=== PATIENT | female | born 1975 | race Caucasian/White ===

== ENCOUNTER 2016-09-27 12:01 | Inpatient (IN) ==
[2016-09-27] MEDS ORDERED: *HR* Heparin 10,000 UNIT/10 ML VIAL ONE (12:10)
[2016-09-27] MEDS ORDERED: Heparin 1,000 UNITS/500 mL NS 500 ML ONE (12:10)
[2016-09-27] MEDS ORDERED: 0.9 % Sodium Chloride 1,000 ML ONE ×2 (12:10→12:18)
--- NOTE | 2016-09-27 12:11 | Emergency Department Note ---
Disposition Clinical Impression: STEMI (ST elevation myocardial infarction) Qualifiers: Involved coronary artery: unspecified coronary artery Qualified Code(s): I21.3 - ST elevation (STEMI) myocardial infarction of unspecified site Disposition: Admitted As Inpatient Condition: Serious Referrals: NO,PCP [Primary Care Provider] - Forms: ED Satisfaction Letter Time of Disposition: 12:16 Chest Pain HPI - General Chief Complaint: ED Chest Pain Stated Complaint: CP Time Seen by Provider: 09/27/16 12:05 Source: patient, EMS Mode of arrival: EMS Limitations: no limitations Vital Signs Reviewed: Yes Nursing Notes Reviewed: Yes - History of Present Illness HPI Narrative: Patient presents via EMS with jaw pain and chest discomfort. Symptoms started approximately one hour ago. Symptoms started from rest while she was driving. She notes associated pressure across her chest as well as dyspnea. She denies a previous history of coronary artery disease. She takes no medications. Pt complaint: chest pain Onset (ago): hour(s) Duration: constant Onset: during rest Pain Location: substernal Severity: moderate Quality: tightness Pain Radiation: jaw/teeth Improves with: nothing Worsens with: nothing Associated symptoms: Reports: diaphoresis, dyspnea Treatments prior to arrival chest pain: aspirin, nitroglycerin, oxygen - Related Data On Oral Contraceptives: No All systems ED: reviewed and negative except as stated. Constitutional: Reports: as per HPI Eyes: Reports: as per HPI ENT ED: Reports: as per HPI Cardiovascular: Reports: chest pain Respiratory: Reports: dyspnea Gastrointestinal: Reports: as per HPI Genitourinary: Reports: as per HPI Musculoskeletal: Reports: as per HPI Integumentary: Reports: as per HPI Neurological: Reports: as per HPI Psychiatric: Reports: as per HPI Endocrine: Reports: as per HPI Hematological/Lymphatic: Reports: as per HPI Allergic/Immunologic: Reports: as per HPI Chest Pain PMH - Past Medical History Medical history: Reports: no medical history - Social History Smoking Status: Current some day smoker Alcohol use: Reports: none Drug use: Reports: none Physical Exam Patient anxious appearing - General Limitations: no limitations General appearance: alert - Head Head exam: atraumatic - Eye Eye exam: Present: normal appearance - ENT ENT exam: normal exam - Neck Neck exam: Present: normal inspection, full ROM - Chest Chest inspection: Present: normal inspection, symmetric chest wall rise - Respiratory Respiratory exam: Present: normal lung sounds bilaterally - Cardiovascular Cardiovascular exam: Present: regular rate, normal rhythm, normal heart sounds - Rectal Exam Rectal exam: Present: deferred - Extremities Exam Extremities exam: Present: normal inspection - Neurological Exam Neurological exam: Present: alert, oriented X3 - Psychiatric Psychiatric exam: Present: normal mood, anxious - Skin Skin exam: Present: warm, dry, diaphoresis Course Course Narrative: Patient presents with jaw discomfort and chest pain. Prehospital EKG sent to me shows a STEMI pattern in the inferior leads. STEMI alert activated. Dr. Figueroa, cardiology recommends Brillinta and heparin Chest Pain - EKG Data EKG attestation: Yes I reviewed and interpreted this EKG. EKG results narrative: Sinus rhythm with ST segment elevation in leads 2, 3, aVF, ST segment depression in leads 1, V1, V2. Study consistent with an inferior ST segment elevation with reciprocal changes. Rate 68 DE 186 QRS 91 QT/QTc 443/460
[2016-09-27] MEDS ORDERED: *HR* Ticagrelor 90 MG TABLET PO ONE (12:13)
[2016-09-27] MEDS ORDERED: Heparin 25,000 UNIT/500 ML D5W 25,000 UNIT/500 ML MLS IVC SCH (12:15)
[2016-09-27] MEDS ORDERED: *HR* Heparin 5,000 UNIT/ML VIAL ONE (12:18)
[2016-09-27] MEDS ORDERED: Nitroglycerin 1,000 MCG/10 ML VIAL IV ONE (12:21)
[2016-09-27] MEDS ORDERED: Verapamil 5 MG/2 ML VIAL ONE (12:21)
[2016-09-27 12:25] LABS: Basophils # 0.1 K/mcL (0.0-0.2); Basophils % 0.3 %; Eosinophils # 0.2 K/mcL (0.0-0.6); Eosinophils % 0.8 %; Hematocrit 40.1 % (35.3-44.9); Hemoglobin 12.9 g/dL (11.5-15.4); Immature Granulocytes % 0.7 % (0-4); Lymphocytes # 4.4 K/mcL (0.6-4.6); Lymphocytes % 23.5 %; Mean Corpuscular HGB Conc 32.2 g/dL (31.6-35.5); Mean Corpuscular Hemoglobin 26.7 pg (28.0-33.3); Monocytes # 0.9 K/mcL (0.0-1.3); Monocytes % 4.8 %; Platelet Count 291 K/mcL (140-400); Red Blood Count 4.83 M/mcL (3.82-4.97); Red Cell Distribution Width 14.7 % (11.5-14.5); Segmented Neutrophils % 69.9 %
[2016-09-27 12:30] LABS: INR 1.2; Prothrombin Time 12.6 Seconds (9.4-12.1)
[2016-09-27 12:33] LABS: Activated Partial Thrombo Time 28.2 Seconds (26.0-36.0)
[2016-09-27 12:36] LABS: Alanine Aminotransferase 8 Units/L (0-55); Albumin 3.5 g/dL (3.5-5.0); Albumin/Globulin Ratio 0.9 (1.1-2.2); Alkaline Phosphatase 114 Units/L (38-126); Aspartate Amino Transferase 10 Units/L (5-34); BUN/Creatinine Ratio 5 (6-26); Bilirubin,Total 0.6 mg/dL (0.2-1.2); Calcium 8.8 mg/dL (8.6-10.8); Carbon Dioxide 19 mEq/L (19-29); Chloride 107 mEq/L (98-109); Glucose 158 mg/dL (70-99); Osmolality,Calculated 284 (280-300); Potassium 3.1 mEq/L (3.5-4.5); Sodium 137 mEq/L (136-145); Total Protein 7.5 g/dL (6.0-8.3); eGFR For African Americans > 60 (> 60); eGFR For Non-African Americans > 60 (> 60)
[2016-09-27 12:37] LABS: Blood Urea Nitrogen 4 mg/dL (7-20)
[2016-09-27] MEDS ORDERED: *HR* FentaNYL (PF) 250 MCG/5 ML VIAL ONE (12:40)
[2016-09-27] MEDS ORDERED: *HR* Midazolam HCl 5 MG/5 ML VIAL IVP ONE (12:40)
[2016-09-27] MEDS ORDERED: Ondansetron 4 MG/2 ML VIAL ONE (12:47)
[2016-09-27] MEDS ORDERED: Tirofiban 5 MG/100ML 5 MG/100 ML BAG IV ONE (13:11)
[2016-09-27] MEDS ORDERED: *HR* Morphine 2 MG/ML SYRINGE IVP PRN (13:21)
--- NOTE | 2016-09-27 13:23 | Pre-Sedation Evaluation ---
Pre-sedation evaluation - Pre-sedation checklist Date of procedure: 09/27/16 Procedure: [facility] Recent Vitals: Last Vital Signs Temp 0 F L 09/27/16 12:07 Pulse 60 09/27/16 12:17 Resp 18 09/27/16 12:27 BP 106/84 09/27/16 12:27 Pulse Ox 100 09/27/16 12:17 Previous reaction to sedatives/anesthetics: No Dietary Status: unknown ASA Classification *see protocol: CLASS II-Mild systemic disease, E-EMERGENCY- Add to any of the above to indicate emergent Plan of Care: Pt appropriate candidate for procedure/moderate/conscious sedation , Risks/benefits of procedure/sedation discussed w/ patient/family, If not NPO; Risk of intake outweiged by necessity to perform procedure
[2016-09-27] MEDS ORDERED: Tirofiban 12.5 MG/250ML 12.5 MG/250 ML BAG IVC SCH (13:30)
--- NOTE | 2016-09-27 13:57 | Invasive Diagnostic Lab Proc ---
Name: Abbey Amaya Date of Study: 09/27/2016 Date: 1975 Ht: 66.0in Medical Record#: [id number] Age: 40 Wt: 178.35lb Gender: Female BSA: 1.9 Order #: [id number] BMI: 28.8 Physicians Procedure Physician: Chavo Figueroa MD, [facility] Referring MD: Referring MD: Staff Name Position [facility] 12:30 PM Husam Hernandez RN Product Safety Technical Assistant 12:30 PM Sites, Bella RT (R) Scrub 12:30 PM Mary Hebert RN Nurse 12:30 PM Husam Hernandez RN Product Safety Technical Assistant 12:30 PM Sites, Bella RT (R) Scrub 12:30 PM [facility] 12:30 PM Mary Hebert RN Nurse 12:30 PM Husam Hernandez RN Product Safety Technical Assistant 12:30 PM Indications Indication STEMI Procedures Performed Procedure L HRT ARTERY/VENTRICLE ANGIO PRQ CARD EZRA STENT W/ANGIO 1 VSL Pre-Procedure Checklist Informed consent is complete signed and on chart. H\\T\\P is on chart. ID band is on and ID verified with patient. Patient NPO for procedure The procedure was described for the patient and questions were answered. Blood Pressure: 137/85 ECG is on chart. Rhythm: STEMI Plan of Care Patient will tolerate the procedure without complications. Adequate level of comfort will be maintained. Hemodynamics will remain stable Patient will recover from procedure without complications. Respiratory function will be maintained. Cardiac rhythm will remain stable. Patient temperature will be maintained. Patient and/or family have verbalized understanding of the procedure. Patient Education Chief Complaint/Reason for Test: Cardiac Cath Developmental Category: Adult (18-64 years) Developmentally Appropriate for Age: Yes Learning Barriers: None Education Needs: Procedure Education Method: Verbal Information Taught: Cardiac Cath Educational Evaluation: Able to repeat information Intravenous Access Time IV Size Location DC'd Fluid/Drip Rate Units RN 12:30 PM 18g 1 1/4" Patent On Arrival Rt Antecubital 0.9NaCl 100 ml'hr Husam Hernandez RN 12:30 PM 18g 1 1/4" Patent On Arrival Lt Antecubital 0.9NaCl 100 ml/hr Husam Hernandez RN 12:30 PM 22g 1" Patent On Arrival Rt Arm Mary, Husam KULKARNI Allergies No Known Allergies Vital Signs Time BP (mmHg) HR (bpm) O2 Sat. RR (bpm) LOC 12:44 PM / % 5 = Fully awake and oriented or at pre-proc level 12:44 PM / % 4 = Oriented but drowsy 12:59 PM / % 4 = Oriented but drowsy 01:14 PM / % 5 = Fully awake and oriented or at pre-proc level 12:34 PM 137 / 85 71 100 % 17 12:39 PM 122 / 82 61 100 % 12:44 PM 126 / 93 78 100 % 12 12:49 PM 113 / 62 65 94 % 23 12:54 PM 97 / 61 66 94 % 29 12:59 PM 106 / 54 64 94 % 28 01:05 PM 121 / 86 64 100 % 01:09 PM 119 / 82 67 100 % 28 01:14 PM 128 / 90 62 98 % 24 Procedural Medications Time Medication Dose Units Method Given By 12:41 PM Versed 2 mg Intravenous [place], Husam KULKARNI 12:41 PM Fentanyl 50 mcg Intravenous [place], uHsam KULKARNI 12:41 PM Lidocaine 2% 0.5 ml Subcutaneous Chavo Figueroa MD 12:43 PM Versed 2 mg Intravenous [place], Husam KULKARNI 12:44 PM Fentanyl 25 mcg Intravenous [place], Husam KULKARNI 12:46 PM Zofran 8 mg Intravenous [place], Husam KULKARNI 12:49 PM Benadryl 50 mg Intravenous [place], Husam KULKARNI 12:49 PM Oxygen 6 L/min nasal cannula Husam Hernandez RN 12:54 PM Nitroglycerin 75 mcg Intracoronary Chavo Figueroa MD 12:56 PM Nitroglycerin 75 mcg Intracoronary Chavo Figueroa MD 01:15 PM Aggrastat Bolus: 42 ml Intravenous [place], Husam KULKARNI 01:15 PM Aggrastat 12.5mg/250ml 15 ml Intravenous [place], Husam KULKARNI 12:35 PM Oxygen 2 L/min nasal cannula Husam Hernandez RN ASA Classification: Emergent Procedure: ASA score is assumed Myles Score Preprocedure Postprocedure Activity 2- Moves 4 extremities sustained head lift Activity 2- Moves 4 extremities sustained head lift Circulation 2- SBP +/= 20 points of pre-anesthetic level Circulation 2- SBP +/= 20 points of pre-anesthetic level Consciousness 2- Awake and alert oriented x 3 Consciousness 2- Awake and alert oriented x 3 O2 Saturation 2- Able to maintain O2 satruation of 92% on room air O2 Saturation 2- Able to maintain O2 satruation of 92% on room air Respiratory 2- Able to deep breathe and cough well Respiratory 2- Able to deep breathe and cough well Total Score 10 Total Score 10 Contrast Agent: Isovue Diagnostic Contrast: 135 ml Total Contrast: 135 ml Fluoro Dose: 702 mGy Procedure Log Time Note Enter By 12:30 PM Bella Li RT (R) Position: Scrub Time in: 12:30 [facility] 12:30 PM Jacy Hsieh RN Position: Monitor Time in: 12:30 [facility] 12:30 PM Mary Hebert RN Position: Nurse Time in: 12:30 [facility] 12:30 PM Husam Hernandez RN Position: Product Safety Technical Assistant Time in: 12:30 [facility] 12:30 PM Pt arrived to labor custodian 2 at 12:30 [facility] 12:31 PM Clinical Presentation: STEMI or equivalent [facility] 12:34 PM Case Start 12:34 PM CathStat 12:34 PM Vitals capture started with the following parameters, Patient=Adult, Interval=5 min, Initial Zslfuxei=224 mmHg, Deflation Rate=5 mmHg, Cuff placed on Left Arm 12:34 PM Sign in performed according to hospital policy. [facility] 12:34 PM Procedure start 12:34 [facility] 12:34 PM HR=71 bpm, ZJNO=785/85 mmhg, TqX5=075.0 %, Resp=17 B/min 12:35 PM Hair removed from procedure site in procedure lab using clippers. Bilateral groin prepped with Chloraprep by Husam Hernandez RN, safety strap applied then patient was draped. Skin intact. [facility] 12:35 PM Hair removed from procedure site in procedure lab using clippers. Right wrist prepped with Chloraprep by Husam Hernandez RN, safety strap applied then patient was draped. Skin intact. [facility] 12:35 PM Patient charges- Angio tray pack, Navilyst 3mm J, Pulse Oximetry and ACIST tubing and transducer [facility] 12:35 PM Time: 12:35 Oxygen on at 2 L/min per nasal cannula by HenthornHusam chong RN 12:36 PM Case Delayed No lpaalena 12:36 PM Recorded ECG: HR=61 Condition=Condition 1 12:39 PM HR=61 bpm, CVWP=040/82 mmhg, JjR4=884 % 12:41 PM Time: 12:41 Versed 2 mg Intravenous Given by Husam Hernandez RN 12:41 PM Time: 12:41 Fentanyl 50 mcg Intravenous Given by Husam Hernandez RN 12:41 PM Time out performed according to hospital policy [facility] PM Time: 12:41 0.5 ml Lidocaine 2% to right radial Subcutaneous Given by mimi [facility] 12[facility]42 PM Access obtained by percutaneous puncture. 6Fr 10cm Terumo Glidesheath sheath placed in right Radial artery. [id number] [facility] 12:44 PM Time: 12:43 Versed 2 mg Intravenous Given by Husam Hernandez RN 12:44 PM Time: 12:44 Fentanyl 25 mcg Intravenous Given by Husam Hernandez RN 12:44 PM Time: 12:44 Patient comfortable and pain free: Yes [facility] 12:44 PM Time: 12:44LOC: 5 = Fully awake and oriented or at pre-proc level [facility] 12:44 PM HR=78 bpm, EZOM=316/93 mmhg, SwF4=964.0 %, Resp=12 B/min, Comment=STEMI 12:44 PM Recorded Pressure: Ao, HR=77, Condition=Condition 1 (Aorta) Ao 131/98/112 12:45 PM 6Fr JR 4 Runway guide catheter was used to cannulate the PCI vessel successfully. reused? No [facility] 12:45 PM RCA angiography performed in multiple views. [facility] 12:45 PM .014 PT Graphix 182cm guide wire across target lesion- successful. reused? No [facility] 12:45 PM Inflation device was opened. [facility] 12:46 PM 2.5 mm x 15 mm Emerge Monorail balloon across target lesion- successful. reused? No [facility] 12:46 PM Time: 12:46 Zofran 8 mg Intravenous Given by Husam Hernandez RN 12:47 PM Balloon inflated @ 14 cathie for 9 seconds lparsperez 12:48 PM Balloon inflated @ 14 cathie for 4 seconds [facility] 12:48 PM Recorded Pressure: Ao, HR=64, Condition=Condition 1 (Aorta) Ao 101/81/91 12:49 PM Balloon catheter removed intact. [facility] 12:49 PM [facility]urfusion rhythms [facility] 12[facility] PM Time: 12:49 Benadryl 50 mg Intravenous Given by Husam Hernandez RN [facility] 12:49 PM Time: 12:49 Oxygen on at 6 L/min per nasal cannula by Benito Antony RN [facility] 12:49 PM HR=65 bpm, ZJZV=099/62 mmhg, SpO2=94 %, Resp=23 B/min, Comment=STEMI 12:51 PM 3.5mm x 24mm Synergy bioabsorbable stent across target lesion- successful Lot #[id number] [facility] 12:51 PM Stent deployed @ 16 cathie for 13 seconds [facility] 12:52 PM Stent delivery system removed intact. [facility] 12:52 PM 3.5 mm x 20mm NC Emerge balloon across target lesion- successful. reused? No [facility] 12:53 PM Balloon inflated @ 16 cathie for 16 seconds [facility] 12:53 PM Balloon inflated @ 20 cathie for 12 seconds [facility] 12:54 PM Time: 12:54 Nitroglycerin 75 mcg Intracoronary Given by Chavo Figueroa MD [facility] 12:54 PM HR=66 bpm, NIBP=97/61 mmhg, SpO2=94 %, Resp=29 B/min, Comment=NSR 12:56 PM Time: 12:56 Nitroglycerin 75 mcg Intracoronary Given by Chavo Figueroa MD [facility] 12:58 PM Balloon catheter removed intact. [facility] 12:59 PM 3.5mm x 8mm Synergy bioabsorbable stent across target lesion- successful Lot #[id number] [facility] 12:59 PM Time: 12:44 Patient comfortable and pain free: Yes [facility] 12:59 PM Time: 12:44LOC: 4 = Oriented but drowsy [facility] 12:59 PM HR=64 bpm, OFRK=673/54 mmhg, SpO2=94.0 %, Resp=28 B/min, Comment=NSR 01:01 PM Stent deployed @ 16 cathie for 12 seconds [facility] 01:02 PM Stent balloon reinflated @ 16 cathie for 8 seconds [facility] 01:02 PM Stent delivery system removed intact. lparsley 01:04 PM 3.75 mm x 12mm NC Emerge balloon across target lesion- successful. reused? No lparsley 01:05 PM Balloon inflated @ 14 cathie for 10 seconds lparsley 01:05 PM HR=64 bpm, ULZP=856/86 mmhg, MmJ8=888.0 %, Comment=NSR 01:05 PM Balloon inflated @ 16 cathie for 12 seconds lparsley 01:06 PM Balloon inflated @ 12 cathie for 11 seconds lparsley 01:06 PM Balloon inflated @ 12 cathie for 13 seconds lparsley 01:07 PM Balloon inflated @ 12 cathie for 6 seconds lparsley 01:07 PM Balloon inflated @ 12 cathie for 6 seconds lparsley 01:08 PM Balloon catheter removed intact. lparsley 01:09 PM Guide wire removed intact. lparsley 01:09 PM Guide catheter removed intact. lparsley 01:09 PM HR=67 bpm, SYOC=562/82 mmhg, MuP0=844.0 %, Resp=28 B/min, Comment=NSR 01:10 PM 5Fr FL 4 catheter inserted over the wire [facility] 01:10 PM 0.035 145cm Navilyst 3mmJ wire [id number] lparsley 01:10 PM LCA angiography performed in multiple views. lparsley 01:11 PM Recorded Pressure: Ao, HR=67, Condition=Condition 1 (Aorta) Ao 117/96/106 01:13 PM Catheter removed [facility] :13 PM 5Fr Pigtail catheter inserted over the wire [facility] 01:14 PM Recorded Pressure: LV, HR=78, Condition=Condition 1 (Left Ventricle) LV 121/19/30 01:14 PM Time: 12:59LOC: 4 = Oriented but drowsy lparsley 01:14 PM Time: 12:59 Patient comfortable and pain free: Yes lparsley 01:14 PM Catheter selectively placed in left ventricle lparsley 01:14 PM HR=62 bpm, UEUQ=945/90 mmhg, SpO2=98.0 %, Resp=24 B/min 01:15 PM Recorded Pressure: LV, Ao, HR=74, Condition=Condition 1 (Left Ventricle) LV 126/23/49, (Aorta) Ao 126/91/107 01:15 PM Bolus angiogram of left Ventricle complete: 10 ml/sec for a total of 20 mls lparsley :15 PM Time: 13:15 Aggrastat Bolus: 42 ml Intravenous Given by Husam Hernandez RN Zamorano pump lparsley 01:16 PM Time: 13:15 Aggrastat 12.5mg/250ml 15 ml Intravenous Given by Husam Hernandez RN Zamorano pump lparsley 01:17 PM Procedure completed at 13:17 lparsley 01:18 PM Sign out completed: Radiation Dose 701.71 mGy Fluoro Time: 8.3 Isovue 370 - 200ml contrast 134.8 ml given by Chavo Figueroa MD, [facility]. Complications: NoneCardiac Rehab Consult needed: YesConfirmed administered medications: Yes lparsley 01:18 PM Isovue 370 - 200ml,1 Bottle(s) used. lparsley 01:18 PM Arterial sheath pulled, Vasc Band closure device used and was Successful S/N. lparsley 01:18 PM 13 ml air in Vasc Band. lparsley 01:18 PM Post ECG NSR lparsley 01:18 PM Post Blood Pressure 128/90 lparsley 01:19 PM 13:19 Post Pulses Rt Radial 2+ lparsley 01:19 PM Information taught Cardiac Cath, PCI, and Vasc Band lparsley 01:19 PM Education needs Procedure, Plan of Care, and Safe \\T\\ Effective Use of Medications lparsley 01:19 PM Learning barriers :None lparsley 01:19 PM Education Methods Verbal lparsley 01:19 PM Education evaluation Able to repeat information lparsley 01:19 PM Site status No bleeding/hematoma - Rt Wrist as reported by Sites, Bella RT (R) at 13:19 lparsley 01:21 PM Vitals capture stopped. 01:28 PM Report given to Randy KULKARNI Pt taken to ICU Room #7. 13:27 lparsperez 01:30 PM Time: 13:14 Patient comfortable and pain free: Yes lparsley 01:30 PM Time: 13:14LOC: 5 = Fully awake and oriented or at pre-proc level lparsperez 01:31 PM Plavix, Effient or Brilinta given Yes lparsley 01:32 PM Delay to floor No lparsley 01:32 PM Patient out of room: 13:32 lparsperez 01:32 PM Family placed in consult room. lparsley 01:32 PM Complications: None lparsley 01:32 PM Fluoro Time: 8.3 lparsley 01:33 PM Isovue 370 - 200ml contrast 134.8 ml given by Chavo Figueroa MD, [facility]. lparsley 01:33 PM Radiation Dose 701.71 mGy lparsley 01:37 PM Husam Hernandez RN Position: Product Safety Technical Assistant Time in: 12:30 lparsley 01:42 PM Coronary Dominance: right lparsley 01:43 PM Lesion found in Proximal RCA. Pre Stenosis: 100 lparsley 01:43 PM Lesion found in Distal RCA. Pre Stenosis: 60 lparsley 01:43 PM Lesion found in Proximal LAD. Pre Stenosis: 50 lparsley 01:43 PM Lesion found in Mid LAD. Pre Stenosis: 50 lparsley 01:44 PM Lesion found in Proximal Circumflex. Pre Stenosis: 60 lparsley 01:44 PM Proximal Left Anterior Descending Coronary Artery with 50% stenosis. lparsley 01:44 PM Mid/Distal Left Anterior Descending Coronary Artery and diagonal branches with 50% stenosis. lparsley 01:44 PM Circumflex, Obtuse Marginal, Left Posterior Descending, and Left Posterolateral Coronary Arteries with 60 % stenosis. lparsley 01:45 PM Right Coronary, Right Posterior Descending Arteries with Right Posterolateral and Acute Marginal branches with 100 % stenosis. [facility] Complications Complication None Hemodynamics Pressures Site Systolic/A Wave Diastolic/V Wave Mean AO 131 98 112 AO 101 81 91 AO 117 96 106 LV 121 19 30 LV 126 23 49 AO 126 91 107 Post Procedure Information Blood Pressure: 128/90 mmHg Rhythm: NSR Post procedural instructions were given Closure Device Time Device Success/Fail 09/27/2016 1:18:00 PM Mechanical Compression Successful Site Checks Time Location Status Staff Sheath In? Note 01:19 PM Rt Wrist No bleeding/hematoma Sites, Bella RT (R) Pulses Time Site Pre-Procedure Post-Procedure Note 09/27/2016 12:30:00 PM Bilateral DP \\T\\ PT 1+ 09/27/2016 12:30:00 PM Bilateral radial 2+ 1:19:00 PM Rt Radial 2+ Updated by Jacy Hsieh RN on 09/27/2016 1:51:03 PM electronically signed on 09/27/2016 1:53:02 PM with status of Final
--- NOTE | 2016-09-27 16:49 | Invasive Diagnostic Lab Proc ---
Name: Abbey Amaya Date of Study: 09/27/2016 Date: 1975 Ht: 66.0in Medical Record#: [id number] Age: 40 Wt: 178.35lb Gender: Female BSA: 1.9 Order #: [id number] BMI: 28.8 Physicians Procedure Physician: Chavo Figueroa MD, [facility] Referring MD: Referring MD: Staff Name [facility] 12[facility]30 PM Husam Hernandez RN Maintenance Mechanic Supervisor 12:30 PM Sites, Bella RT (R) Scrub 12:30 PM Mary Hebert RN Nurse 12:30 PM Husam Hernandez RN Maintenance Mechanic Supervisor 12:30 PM Sites, Bella RT (R) Scrub 12:30 PM [facility] 12:30 PM Mary Hebert RN Nurse 12:30 PM Husam Hernandez RN Maintenance Mechanic Supervisor 12:30 PM Indications Indication STEMI Procedures Performed Procedure L HRT ARTERY/VENTRICLE ANGIO PRQ CARD EZRA STENT W/ANGIO 1 VSL Pre-Procedure Checklist Informed consent is complete signed and on chart. H\\T\\P is on chart. ID band is on and ID verified with patient. Patient NPO for procedure The procedure was described for the patient and questions were answered. Blood Pressure: 137/85 ECG is on chart. Rhythm: STEMI Plan of Care Patient will tolerate the procedure without complications. Adequate level of comfort will be maintained. Hemodynamics will remain stable Patient will recover from procedure without complications. Respiratory function will be maintained. Cardiac rhythm will remain stable. Patient temperature will be maintained. Patient and/or family have verbalized understanding of the procedure. Patient Education Chief Complaint/Reason for Test: Cardiac Cath Developmental Category: Adult (18-64 years) Developmentally Appropriate for Age: Yes Learning Barriers: None Education Needs: Procedure Education Method: Verbal Information Taught: Cardiac Cath Educational Evaluation: Able to repeat information Intravenous Access Time IV Size Location DC'd Fluid/Drip Rate Units RN 12:30 PM 18g 1 1/4" Patent On Arrival Rt Antecubital 0.9NaCl 100 ml'hr Husam Hernandez RN 12:30 PM 18g 1 1/4" Patent On Arrival Lt Antecubital 0.9NaCl 100 ml/hr Hent[place], Husam RN 12:30 PM 22g 1" Patent On Arrival Rt Arm Henthornarlette, Husam RN Allergies No Known Allergies Vital Signs Time BP (mmHg) HR (bpm) O2 Sat. RR (bpm) LOC 12:44 PM / % 5 = Fully awake and oriented or at pre-proc level 12:44 PM / % 4 = Oriented but drowsy 12:59 PM / % 4 = Oriented but drowsy 01:14 PM / % 5 = Fully awake and oriented or at pre-proc level 12:34 PM 137 / 85 71 100 % 17 12:39 PM 122 / 82 61 100 % 12:44 PM 126 / 93 78 100 % 12 12:49 PM 113 / 62 65 94 % 23 12:54 PM 97 / 61 66 94 % 29 12:59 PM 106 / 54 64 94 % 28 01:05 PM 121 / 86 64 100 % 01:09 PM 119 / 82 67 100 % 28 01:14 PM 128 / 90 62 98 % 24 Procedural Medications Time Medication Dose Units Method Given By 12:41 PM Versed 2 mg Intravenous Henthorne, Husam KULKARNI 12:41 PM Fentanyl 50 mcg Intravenous [place], Husam RN 12:41 PM Lidocaine 2% 0.5 ml Subcutaneous Chavo Figueroa MD 12:43 PM Versed 2 mg Intravenous [place], Husam RN 12:44 PM Fentanyl 25 mcg Intravenous [place], Husam RN 12:46 PM Zofran 8 mg Intravenous [place], Husam RN 12:49 PM Benadryl 50 mg Intravenous [place], Husam RN 12:49 PM Oxygen 6 L/min nasal cannula Mary, Husam KULKARNI 12:54 PM Nitroglycerin 75 mcg Intracoronary Chavo Figueroa MD 12:56 PM Nitroglycerin 75 mcg Intracoronary Chavo Figueroa MD 01:15 PM Aggrastat Bolus: 42 ml Intravenous [place]ent[place]ne, Husam RN 01:15 PM Aggrastat 12.5mg/250ml 15 ml Intravenous [place], Husam RN 12:35 PM Oxygen 2 L/min nasal cannula Husam Hernandez RN 12:42 PM Nitroglycerin 200 mcg Intraarterial Chavo Figueroa MD 12:42 PM Verapamil 2.5 mg Intraarterial Chavo Figueroa MD, [facility] ASA Classification: Emergent Procedure: ASA score is assumed Myles Score Preprocedure Postprocedure Activity 2- Moves 4 extremities sustained head lift Activity 2- Moves 4 extremities sustained head lift Circulation 2- SBP +/= 20 points of pre-anesthetic level Circulation 2- SBP +/= 20 points of pre-anesthetic level Consciousness 2- Awake and alert oriented x 3 Consciousness 2- Awake and alert oriented x 3 O2 Saturation 2- Able to maintain O2 satruation of 92% on room air O2 Saturation 2- Able to maintain O2 satruation of 92% on room air Respiratory 2- Able to deep breathe and cough well Respiratory 2- Able to deep breathe and cough well Total Score 10 Total Score 10 Contrast Agent: Isovue Diagnostic Contrast: 135 ml Total Contrast: 135 ml Fluoro Dose: 702 mGy Procedure Log Time Note Enter By 12:30 PM Jen, Bella RT (R) Position: Scrub Time in: 12:30 [facility] 12:30 PM Jacy Hsieh RN Position: Monitor Time in: 12:30 [facility] 12:30 PM Mary Hebert RN Position: Nurse Time in: 12:30 [facility] 12:30 PM Husam Hernandez RN Position: Maintenance Mechanic Supervisor Time in: 12:30 [facility] 12:30 PM Pt arrived to lab rep 2 at 12:30 [facility] 12:31 PM Clinical Presentation: STEMI or equivalent [facility] 12:34 PM Case Start 12:34 PM CathStat 12:34 PM Vitals capture started with the following parameters, Patient=Adult, Interval=5 min, Initial Lhqpkwin=129 mmHg, Deflation Rate=5 mmHg, Cuff placed on Left Arm 12:34 PM Sign in performed according to hospital policy. [facility] 12:34 PM Procedure start 12:34 [facility] 12:34 PM HR=71 bpm, GCSN=017/85 mmhg, QkX7=092.0 %, Resp=17 B/min 12:35 PM Hair removed from procedure site in procedure lab using clippers. Bilateral groin prepped with Chloraprep by Husam Hernandez RN, safety strap applied then patient was draped. Skin intact. [facility] 12:35 PM Hair removed from procedure site in procedure lab using clippers. Right wrist prepped with Chloraprep by Husam Hernandez RN, safety strap applied then patient was draped. Skin intact. [facility] 12:35 PM Patient charges- Angio tray pack, Navilyst 3mm J, Pulse Oximetry and ACIST tubing and transducer [email or web address] 12:35 PM Time: 12:35 Oxygen on at 2 L/min per nasal cannula by Husam Hernandez RN 12:36 PM Case Delayed No [facility] 12:36 PM Recorded ECG: HR=61 Condition=Condition 1 12:39 PM HR=61 bpm, WVOF=231/82 mmhg, YzO0=567 % 12:41 PM Time: 12:41 Versed 2 mg Intravenous Given by Husam Hernandez RN 12:41 PM Time: 12:41 Fentanyl 50 mcg Intravenous Given by Husam Hernandez RN 12:41 PM Time out performed according to hospital policy rustperez 12:41 PM Time: 12:41 0.5 ml Lidocaine 2% to right radial Subcutaneous Given by mimi [facility] 12:42 PM Time: 12:42 Patient given 200 mcg Nitroglycerin, and 2.5 mg Verapamil Intraarterial by Chavo Figueroa MD, [facility] 12:42 PM Access obtained by percutaneous puncture. 6Fr 10cm Terumo Glidesheath sheath placed in right Radial artery. [id number] [facility] 12:44 PM Time: 12:43 Versed 2 mg Intravenous Given by Husam Hernandez RN 12:44 PM Time: 12:44 Fentanyl 25 mcg Intravenous Given by Husam Hernandez RN 12:44 PM Time: 12:44 Patient comfortable and pain free: Yes [facility] 12:44 PM Time: 12:44LOC: 5 = Fully awake and oriented or at pre-proc level [facility] [place] 12:44 PM HR=78 bpm, ICQV=136/93 mmhg, UjH1=164.0 %, Resp=12 B/min, Comment=STEMI 12:44 PM Recorded Pressure: Ao, HR=77, Condition=Condition 1 (Aorta) Ao 131/98/112 12:45 PM 6Fr JR 4 Runway guide catheter was used to cannulate the PCI vessel successfully. reused? No [facility] [place] 12:45 PM RCA angiography performed in multiple views. [facility] [place] 12:45 PM .014 PT Graphix 182cm guide wire across target lesion- successful. reused? No [facility] 12:45 PM Inflation device was opened. [facility] [place] 12:46 PM 2.5 mm x 15 mm Emerge Monorail balloon across target lesion- successful. reused? No [facility] 12:46 PM Time: 12:46 Zofran 8 mg Intravenous Given by Husam Hernandez RN [facility] 12:47 PM Balloon inflated @ 14 cathie for 9 seconds lparsley 12:48 PM Balloon inflated @ 14 cathie for 4 seconds lparsley 12:48 PM Recorded Pressure: Ao, HR=64, Condition=Condition 1 (Aorta) Ao 101/81/91 12:49 PM Balloon catheter removed intact. [facility] [place] 12:49 PM repurfusion rhythms noted lparsley 12:49 PM Time: 12:49 Benadryl 50 mg Intravenous Given by Husam Hernandez RN [facility] 12:49 PM Time: 12:49 Oxygen on at 6 L/min per nasal cannula by Benito Antony RN [facility] [place] 12:49 PM HR=65 bpm, FIOT=786/62 mmhg, SpO2=94 %, Resp=23 B/min, Comment=STEMI 12:51 PM 3.5mm x 24mm Synergy bioabsorbable stent across target lesion- successful Lot #[id number] [facility] [place] 12:51 PM Stent deployed @ 16 cathie for 13 seconds [facility] [place] 12:52 PM Stent delivery system removed intact. [facility] [place] 12:52 PM 3.5 mm x 20mm NC Emerge balloon across target lesion- successful. reused? No [facility] [place] 12:53 PM Balloon inflated @ 16 cathie for 16 seconds [facility] [place] 12:53 PM Balloon inflated @ 20 cathie for 12 seconds [facility] [place] 12:54 PM Time: 12:54 Nitroglycerin 75 mcg Intracoronary Given by Chavo Figueroa MD [facility] [place] 12:54 PM HR=66 bpm, NIBP=97/61 mmhg, SpO2=94 %, Resp=29 B/min, Comment=NSR 12:56 PM Time: 12:56 Nitroglycerin 75 mcg Intracoronary Given by Chavo Figueroa MD [facility] 12:58 PM Balloon catheter removed intact. [facility] [place] 12:59 PM 3.5mm x 8mm Synergy bioabsorbable stent across target lesion- successful Lot #[id number] [facility] [place] 12:59 PM Time: 12:44 Patient comfortable and pain free: Yes [facility] 12:59 PM Time: 12:44LOC: 4 = Oriented but drowsy [facility] [place] 12:59 PM HR=64 bpm, HGME=407/54 mmhg, SpO2=94.0 %, Resp=28 B/min, Comment=NSR 01:01 PM Stent deployed @ 16 cathie for 12 seconds lparsley 01:02 PM Stent balloon reinflated @ 16 cathie for 8 seconds lparsley 01:02 PM Stent delivery system removed intact. lparsley 01:04 PM 3.75 mm x 12mm NC Emerge balloon across target lesion- successful. reused? No lparsley 01:05 PM Balloon inflated @ 14 cathie for 10 seconds lparsley 01:05 PM HR=64 bpm, OMMB=142/86 mmhg, NlB2=728.0 %, Comment=NSR 01:05 PM Balloon inflated @ 16 cathie for 12 seconds lparsley 01:06 PM Balloon inflated @ 12 cathie for 11 seconds lparsley 01:06 PM Balloon inflated @ 12 cathie for 13 seconds lparsley 01:07 PM Balloon inflated @ 12 cathie for 6 seconds lparsley 01:07 PM Balloon inflated @ 12 cathie for 6 seconds lparsley 01:08 PM Balloon catheter removed intact. lparsley 01:09 PM Guide wire removed intact. lparsley 01:09 PM Guide catheter removed intact. lparsley 01:09 PM HR=67 bpm, NZTS=297/82 mmhg, NhC3=142.0 %, Resp=28 B/min, Comment=NSR 01:10 PM 5Fr FL 4 catheter inserted over the wire [facility] 01:10 PM 0.035 145cm Navilyst 3mmJ wire [id number] [facility] [place] 01:10 PM LCA angiography performed in multiple views. [facility] 01:11 PM Recorded Pressure: Ao, HR=67, Condition=Condition 1 (Aorta) Ao 117/96/106 01:13 PM Catheter removed [facility] 01:13 PM 5Fr Pigtail catheter inserted over the wire [facility] 01:14 PM Recorded Pressure: LV, HR=78, Condition=Condition 1 (Left Ventricle) LV 121/19/30 01:14 PM Time: 12:59LOC: 4 = Oriented but drowsy lparsley 01:14 PM Time: 12:59 Patient comfortable and pain free: Yes lparsley 01:14 PM Catheter selectively placed in left ventricle [facility] [place] 01:14 PM HR=62 bpm, UFAM=751/90 mmhg, SpO2=98.0 %, Resp=24 B/min 01:15 PM Recorded Pressure: LV, Ao, HR=74, Condition=Condition 1 (Left Ventricle) LV 126/23/49, (Aorta) Ao 126/91/107 01:15 PM Bolus angiogram of left Ventricle complete: 10 ml/sec for a total of 20 mls lparsley 01:15 PM Time: 13:15 Aggrastat Bolus: 42 ml Intravenous Given by Husam Hernandez RN Zamorano pump lparsperez 01:16 PM Time: 13:15 Aggrastat 12.5mg/250ml 15 ml Intravenous Given by Husam Hernandez RN Zamorano pump lparsley 01:17 PM Procedure completed at 13:17 lparsley 01:18 PM Sign out completed: Radiation Dose 701.71 mGy Fluoro Time: 8.3 Isovue 370 - 200ml contrast 134.8 ml given by Chavo Figueroa MD, [facility]. Complications: NoneCardiac Rehab Consult needed: YesConfirmed administered medications: Yes lparsley 01:18 PM Isovue 370 - 200ml,1 Bottle(s) used. lparsley 01:18 PM Arterial sheath pulled, Vasc Band closure device used and was Successful S/N. lparsley 01:18 PM 13 ml air in Vasc Band. lparsley 01:18 PM Post ECG NSR lparsley 01:18 PM Post Blood Pressure 128/90 lparsley 01:19 PM 13:19 Post Pulses Rt Radial 2+ lparsley 01:19 PM Information taught Cardiac Cath, PCI, and Vasc Band lparsley 01:19 PM Education needs Procedure, Plan of Care, and Safe \\T\\ Effective Use of Medications lparsley 01:19 PM Learning barriers :None lparsley 01:19 PM Education Methods Verbal lparsley 01:19 PM Education evaluation Able to repeat information lparsley 01:19 PM Site status No bleeding/hematoma - Rt Wrist as reported by Sites, Bella RT (R) at 13:19 lparsley 01:21 PM Vitals capture stopped. 01:28 PM Report given to Randy KULKARNI Pt taken to ICU Room #7. 13:27 lparsperez 01:30 PM Time: 13:14 Patient comfortable and pain free: Yes lparsperez :30 PM Time: 13:14LOC: 5 = Fully awake and oriented or at pre-proc level lparsley 01:31 PM Plavix, Effient or Brilinta given Yes lparsley 01:32 PM Delay to floor No lparsley 01:32 PM Patient out of room: 13:32 lparsley 01:32 PM Family placed in consult room. lparsley 01:32 PM Complications: None lparsley 01:32 PM Fluoro Time: 8.3 lparsley 01:33 PM Isovue 370 - 200ml contrast 134.8 ml given by Chavo Figueroa MD, [facility]. lparsley 01:33 PM Radiation Dose 701.71 mGy lparsley 01:37 PM Husam Hernandez RN Position: Maintenance Mechanic Supervisor Time in: 12:30 lparsley 01:42 PM Coronary Dominance: right lparsley 01:43 PM Lesion found in Proximal RCA. Pre Stenosis: 100 lparsley 01:43 PM Lesion found in Distal RCA. Pre Stenosis: 60 lparsley 01:43 PM Lesion found in Proximal LAD. Pre Stenosis: 50 lparsley 01:43 PM Lesion found in Mid LAD. Pre Stenosis: 50 lparsley 01:44 PM Lesion found in Proximal Circumflex. Pre Stenosis: 60 lparsley 01:44 PM Proximal Left Anterior Descending Coronary Artery with 50% stenosis. lparsley 01:44 PM Mid/Distal Left Anterior Descending Coronary Artery and diagonal branches with 50% stenosis. lparsley 01:44 PM Circumflex, Obtuse Marginal, Left Posterior Descending, and Left Posterolateral Coronary Arteries with 60 % stenosis. lparsley 01:45 PM Right Coronary, Right Posterior Descending Arteries with Right Posterolateral and Acute Marginal branches with 100 % stenosis. lparsley Complications Complication None Hemodynamics Pressures Site Systolic/A Wave Diastolic/V Wave Mean AO 131 98 112 AO 101 81 91 AO 117 96 106 LV 121 19 30 LV 126 23 49 AO 126 91 107 Post Procedure Information Blood Pressure: 128/90 mmHg Rhythm: NSR Post procedural instructions were given Closure Device Time Device Success/Fail 09/27/2016 1:18:00 PM Mechanical Compression Successful Site Checks Time Location Status Staff Sheath In? Note 01:19 PM Rt Wrist No bleeding/hematoma Sites, Bella RT (R) Pulses Time Site Pre-Procedure Post-Procedure Note 09/27/2016 12:30:00 PM Bilateral DP \\T\\ PT 1+ 09/27/2016 12:30:00 PM Bilateral radial 2+ 1:19:00 PM Rt Radial 2+ Updated by Jacy Hsieh RN on 09/27/2016 4:41:54 PM electronically signed on 09/27/2016 4:42:47 PM with status of Final
[2016-09-27] MEDS: *HR* Heparin 5,000 UNIT/ML VIAL SQ SCH (17:53)
--- NOTE | 2016-09-27 19:57 | Electrocardiograph Report ---
[address] [place], [place] [address] Test Date: 2016-09-27 Pat Name: Abbey Amaya Department: 102 Room: [facility] Gender: F Case Preparer And Liner: [facility] : 1975 Requested By: Luis Alfredo Haji Order Number: [id number] Reading MD: Chavo Figueroa MD Measurements Intervals [place] Rate: 68 P: 48 CT: 186 QRS: 57 QRSD: 91 T: 97 QT: 443 QTc: 460 Interpretive Statements SINUS RHYTHM WITH SINUS ARRHYTHMIA ST ELEVATION, CONSIDER INFERIOR INJURY ACUTE DE Electronically Signed On 09-27-2016 19:55:58 EDT by Chavo Figueroa MD
--- NOTE | 2016-09-27 19:58 | Electrocardiograph Report ---
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
[2016-09-27] MEDS: *HR* Ticagrelor 90 MG TABLET PO SCH (20:12)
[2016-09-28 04:08] LABS: Basophils # 0.1 K/mcL (0.0-0.2); Basophils % 0.3 %; Eosinophils # 0.1 K/mcL (0.0-0.6); Eosinophils % 0.4 %; Hematocrit 38.3 % (35.3-44.9); Hemoglobin 12.6 g/dL (11.5-15.4); Immature Granulocytes % 0.6 % (0-4); Lymphocytes # 3.4 K/mcL (0.6-4.6); Lymphocytes % 18.3 %; Mean Corpuscular HGB Conc 32.9 g/dL (31.6-35.5); Mean Corpuscular Hemoglobin 27.3 pg (28.0-33.3); Mean Corpuscular Volume 82.9 fL (83.0-100.0); Mean Platelet Volume 11.6 fL (9.4-12.4); Monocytes # 0.9 K/mcL (0.0-1.3); Monocytes % 5.1 %; Neutrophils # 13.8 K/mcL (1.6-8.9); Platelet Count 225 K/mcL (140-400); Red Blood Count 4.62 M/mcL (3.82-4.97); Red Cell Distribution Width 14.8 % (11.5-14.5); Segmented Neutrophils % 75.3 %
[2016-09-28 04:23] LABS: BUN/Creatinine Ratio 4 (6-26); Carbon Dioxide 23 mEq/L (19-29); Chloride 106 mEq/L (98-109); Glucose 96 mg/dL (70-99); Osmolality,Calculated 282 (280-300); Sodium 138 mEq/L (136-145); eGFR For African Americans > 60 (> 60); eGFR For Non-African Americans > 60 (> 60)
[2016-09-28 04:54] LABS: Blood Urea Nitrogen 3 mg/dL (7-20); Potassium 4.5 mEq/L (3.5-4.5)
[2016-09-28] MEDS: *HR* Heparin 5,000 UNIT/ML VIAL SQ SCH ×2 (05:28→17:27)
[2016-09-28] MEDS: *HR* Ticagrelor 90 MG TABLET PO SCH ×2 (08:52→20:47)
[2016-09-28] MEDS ORDERED: Metoprolol XL (24 HR) Succ 25 MG TAB.ER.24H PO SCH (09:00)
[2016-09-28] MEDS ORDERED: Aspirin 81 MG TAB.CHEW PO SCH (09:00)
--- NOTE | 2016-09-28 09:16 | ECHO - Doppler Report ---
Echocardiogram Name: Abbey Amaya Date of Study: 09/27/2016 Date: 1975 Ht: 66.0 in Medical Record#: [id number] Age: 40 Wt: 178.0 lb Gender: Female BSA: 1.9 Order #: [id number] Location: [facility] Room #: [facility] Reading Physician: Donny Redman DO, [facility], [facility] Social Media Strategist: Loyda Yin RDCS Ordering Physician: Chavo Figueroa MD, [facility] Primary Physician: None Indications: ACS Impressions: LVEF 55%. Normal LV chamber size, wall thickness and function. Mild left ventricular diastolic dysfunction. Normal right ventricular structure and function. No evidence of pulmonary hypertension. No significant valvular dysfunction. Left Ventricular Wall Motion: Rest Echo Findings All wall segments showed normal motion. Findings: Study Quality * Technically adequate exam. ECG Findings * Normal sinus rhythm. Left Ventricle * LVEF 55%. * Normal LV chamber size, wall thickness and function. * Mild left ventricular diastolic dysfunction. Right Ventricle * Normal right ventricular structure and function. Left Atrium * Normal left atrial size. Right Atrium * Normal right atrial size. Interatrial Septum * Interatrial septum not well evaluated. Aortic Valve * Aortic valve not well visualized. * No aortic stenosis. * No aortic regurgitation. Mitral Valve * Normal mitral valve structure and function. * No mitral stenosis. * Trace mitral regurgitation. Tricuspid Valve * Normal tricuspid valve structure and function. * Trace tricuspid regurgitation. * No evidence of pulmonary hypertension. Pulmonic Valve * Pulmonic valve not well visualized. * No pulmonic regurgitation. Aorta * Normally sized aortic root. Pericardium * The pericardium appears normal. IVC * Normal IVC dimensions and inspiratory collapse. Pulmonary Artery * Normal visualized portions of the main pulmonary artery. History Family History of CAD Measurements: BP: 115/ 86 2D Normal Values RVIDd: 1.80 cm <2.7 cm IVSd: .62 cm 0.6 - 1.0 cm LVIDd: 5.61 cm 3.7 - 5.6 cm LVPWd: .71 cm 0.6 - 1.1 cm LVIDs: 3.78 cm 1.5 - 3.6 cm AO: 2.10 cm < 4.0 cm LA: 2.80 cm 2.0 - 4.0cm %FS: 32.60 cm >25 % LA volume: 32 Mitral Valve Peak E:.77 m/sec Peak A:.78 m/sec E/A Ratio:1 Tricuspid Valve TV Regurg Peak Grad: 11.00mmHg TV Regurg Peak Jose: 1.65m/sec Updated by Donny Redman DO, DEVANTE, BRIGITTE LEÓN on 09/28/2016 9:08:40 AM electronically signed on 09/28/2016 9:09:30 AM with status of Final Wall Motion [place]: 1=Normal, 2=Hypokinesis, 3=Akinesis, 4=Dyskinesis, 5=Aneurysmal, 6=Hyperkinetic, X=Not Visualized (Blank)=Missing
--- NOTE | 2016-09-28 10:52 | Cardiology History & Physical ---
Date of Encounter: 09/28/16 Time of Encounter: 10:48 Assessment and Plan (1) STEMI (ST elevation myocardial infarction) Current Visit: Yes Status: Acute Presented as STEMI yesterday, taken emergently to medical laboratory assistant. Had severe 1 vessel CAD, EF 55%. Successful PTCA/EZRA in proximal RCA. Moderate 2 vessel CAD. DAPT (ASA and Brilinta) x 1 year interrupted. Pt verbalizes understanding. Continue BB and statin. Pt denies any chest pain or dyspnea this AM. She is tearful and emotional, which she states is out of the ordinary for her. Will consult psych. Labs and vitals stable. Troponin 0.07. Echo EF 55%, normal wall motion, mild diastolic dysfunction. Right radial access site healing well. No bleeding, hematoma or ecchymosis noted. Transfer to today. Plan for discharge home tomorrow. Qualifiers: Involved coronary artery: unspecified coronary artery Qualified Code(s): I21.3 - ST elevation (STEMI) myocardial infarction of unspecified site (2) Tobacco abuse Current Visit: Yes Status: Chronic Smoking cessation counseling given. Pt denies need for nicotine patches at this time. (3) Tearfulness Current Visit: Yes Status: Acute New onset of crying, feeling emotional. It is in setting of significant life event--STEMI. Pt is not suicidal. Has never been on antidepressants. Will consult psych to evaluate if any antidepressants are needed. History of Present Illness Chief complaint: Chest pain HPI: Ms. Amaya is a 40 year old female that presented yesterday to ED with chief complaint of chest and jaw pain. No prior PMH aside from tobacco abuse. Pt found to have STEMI on EKG and was taken emergently to medical laboratory assistant. Had severe 1 vessel CAD, EF 55%. Successful PTCA/EZRA in proximal RCA. Moderate 2 vessel CAD. Pt denies any chest pain or dyspnea this AM. She is tearful and emotional, which she states is out of the ordinary for her. Labs and vitals stable. Troponin 0.07. Echo EF 55%, normal wall motion, mild diastolic dysfunction. Past Med Surg Social Fam HX - Past Medical History Medical history: hypertension Psychiatric history: no psych history - Social History Smoking Status: Current some day smoker Smokeless Tobacco Status: No Alcohol use: none Drug use: none Medications and Allergies No Known Home Drugs 09/27/16 [History] Allergies No Known Allergies Allergy (Verified 09/27/16 12:21) All Systems Review: A 10-system review of systems was performed and is negative for pertinent findings except as documented above in the HPI. - Cardiovascular Cardiovascular: as per HPI, chest pain at rest, chest pain with exertion, dyspnea at rest, dyspnea on exertion, radiating jaw, neck or arm pain Physical Examination Vital Signs, Last 4 Hours Temp Pulse Resp BP Pulse Ox 09/28/16 09:57 71 09/28/16 08:18 98.1 F 09/28/16 07:00 65 18 130/89 98 Vital Signs Temp Pulse Resp BP Pulse Ox 09/28/16 09:57 71 09/28/16 08:18 98.1 F 09/28/16 07:00 65 18 130/89 98 09/28/16 06:00 92 24 138/93 96 09/28/16 05:10 70 18 119/78 95 09/28/16 04:14 98.1 F 09/28/16 03:49 71 20 131/84 97 09/28/16 02:58 80 22 119/78 97 09/28/16 01:50 77 18 126/91 96 09/28/16 01:06 68 22 135/86 96 09/28/16 00:15 98 F 09/27/16 23:58 96 19 134/90 97 09/27/16 22:58 96 18 139/91 97 09/27/16 21:58 79 20 149/91 97 09/27/16 21:15 66 20 147/89 96 09/27/16 20:34 98 F 09/27/16 20:00 79 09/27/16 19:59 86 22 165/110 99 09/27/16 19:00 83 20 165/100 98 09/27/16 18:00 84 26 144/100 98 09/27/16 17:20 84 09/27/16 16:56 97.7 F 09/27/16 16:00 83 16 136/96 100 09/27/16 15:33 76 16 117/105 100 09/27/16 15:00 66 18 115/86 100 09/27/16 14:40 68 16 128/90 100 09/27/16 14:25 58 18 127/76 100 09/27/16 14:16 59 20 119/84 99 09/27/16 13:43 97.7 F 61 20 125/80 100 09/27/16 12:27 18 106/84 09/27/16 12:17 60 18 97/63 100 09/27/16 12:07 0 F L 68 16 91/67 100 Intake and Output 09/27/16 09/28/16 09/28/16 23:59 07:59 15:59 Intake Total 800 / 800 200 / 200 480 / 480 Output Total 1450 / 1450 Balance -650 / -650 200 / 200 480 / 480 Intake: Oral 800 / 800 200 / 200 480 / 480 Output: Urine 1450 / 1450 Other: Meal Dinner Breakfast Percent of Meal Consumed 40% 100% Weight 81.148 kg Patient Weight 09/28/16 23:59 Weight 81.148 kg General: Conversant, No Apparent Distress HEENT: Atraumatic, Normocephaly, Mucus Membranes Moist Neck: No JVD, Normal carotid pulses Cardiac: Reg Rate and Rhythm, Normal S1 and S2, No Murmur Lungs: Normal Breath Sounds, No Wheeze, Rales, Rhonchi Neuro: Alert and responsive, No focal deficits noted Abdomen: Soft, Non-Tender Skin: Other (right radial access site healing well. No bleeding, hematoma or ecchymosis noted.) Musculoskeletal: No Chest Wall Tenderness Extremities: No Clubbing, No Cyanosis, No Edema, Normal Pulses Results 09/28/16 03:25 09/28/16 03:25 Lab Results 09/28/16 09/28/16 03:25 03:25 WBC 18.3 H Hgb 12.6 Hct 38.3 Plt Count 225 Sodium 138 Potassium 4.5 D Chloride 106 Carbon Dioxide 23 BUN 3 L Creatinine 0.76 Glucose 96 Calcium 9.0 Short CBC 09/28/16 09/27/16 Range/Units 03:25 12:17 WBC 18.3 H 18.6 H (4.3-11.1) K/mcL Hgb 12.6 12.9 (11.5-15.4) g/dL Hct 38.3 40.1 (35.3-44.9) % Plt Count 225 291 (140-400) K/mcL Neutrophils # 13.8 H 13.0 H (1.6-8.9) K/mcL BMP 09/28/16 09/27/16 Range/Units 03:25 12:17 Sodium 138 137 (136-145) mEq/L Potassium 4.5 D 3.1 L (3.5-4.5) mEq/L Chloride 106 107 (98-109) mEq/L Carbon Dioxide 23 19 (19-29) mEq/L BUN 3 L 4 L (7-20) mg/dL Creatinine 0.76 0.75 (0.57-1.11) mg/dL Glucose 96 158 H (70-99) mg/dL Calcium 9.0 8.8 (8.6-10.8) mg/dL Cardiac Enzymes 09/27/16 Range/Units 12: Troponin I 0.07 H* (0-0.03) ng/mL Liver Function 09/27/16 Range/Units 12:17 Total Bilirubin 0.6 (0.2-1.2) mg/dL AST 10 (5-34) Units/L ALT 8 (0-55) Units/L Alkaline Phosphatase 114 (38-126) Units/L Albumin 3.5 (3.5-5.0) g/dL Active Medications Acetaminophen (Tylenol) 500 mg PO Q6HR PRN PRN Reason: Mild Pain Stop: 03/29/17 13:22 Aspirin (Aspirin) 81 mg PO DAILY [facility] Stop: 03/30/17 09:01 Last Admin: 09/28/16 08:52 Dose: 81 mg Heparin Sodium (Porcine) (Heparin) 5,000 unit SQ Q12HCO [facility] Stop: 03/29/17 18:01 Last Admin: 09/28/16 05:28 Dose: 5,000 unit Metoprolol Succinate (Toprol Xl) 25 mg PO DAILY [facility] Stop: 03/30/17 09:01 Last Admin: 09/28/16 08:52 Dose: 25 mg Morphine Sulfate (Morphine Sulfate) 4 mg IVP Q3H PRN PRN Reason: Severe Pain (7-10) Stop: 03/29/17 13:22 Last Admin: 09/27/16 17:52 Dose: 4 mg Rosuvastatin Calcium (Crestor) 40 mg PO HS [facility] Stop: 03/29/17 21:01 Last Admin: 09/27/16 20:12 Dose: 40 mg Ticagrelor (Brilinta) 90 mg PO BID [facility] Stop: 03/29/17 21:01 Last Admin: 04/28/17 08:52 Dose: 90 mg - Imaging and Cardiology Echo: report reviewed Cardiac cath: report reviewed - EKG Interpretation EKG results cardiology: other (24 hour tele AVG HR 79, SR, no significant pauses or arrhythmias noted.)
[2016-09-28] MEDS ORDERED: *HR* Morphine 2 MG/ML SYRINGE IVP PRN (11:49)
--- NOTE | 2016-09-28 14:11 | Invasive Diagnostic Lab ---
Name: Abbey Amaya Date of Study: 09/27/2016 Date: 1975 Ht: 167.6 cm /66.0 in Medical Record#: [id number] Age: 40 Wt: 80.9 kg / 178.35 lb Account/Order#: [id number] Gender: Female BSA: 1.9 Order #: [id number] Fluoro Dose: 702 mGy BMI: 28.8 Procedure Physician: Chavo Figueroa MD, [facility] Referring MD: Referring MD: Procedures Performed: LEFT HEART CATH Stent w/ PTCA Single Major Vessel PCI of an acute [place] Indications: STEMI, Inferior Impressions: There is severe one vessel coronary artery disease. The left ventricle is normal and has normal contractility EF 55% Patient had successful PTCA/Drug-Eluting Stent x 2 OL placement in the ostial-mid RCA. There is moderate two vessel coronary artery disease. Recommendations: Optimal medical therapy of patient's disease. Aggressive risk factor modification. History/Risk Factors: Hypertension Current/Recent Smoker Family History of CAD Procedure Access obtained in the right Radial artery by percutaneous puncture Complications: None Contrast: Isovue 135ml Closure Device: Mechanical Compression Hemodynamics: Pressures Site Systolic/ A Wave Diastolic/ V Wave End Diastolic/ Mean HR AO 131 98 112 77 AO 101 81 91 64 AO 117 96 106 67 LV 121 19 30 78 LV 126 23 49 78 AO 126 91 107 72 LV Ventriculography Ejection Method: LV Gram Ejection Fraction: 55% Wall Motion: MARMOLEJO Anterobasal Normal Anterolateral Normal Apical: Normal Inferoapical Normal Inferobasal Normal Coronary Dominance: right Lesion Findings/Interventions * Left Main Coronary Artery The LMCA is angiographically free of disease. * Left Anterior Descending There is a 50% stenosis in the Proximal LAD. There is a 60% stenosis in the Mid LAD. * Circumflex There is a 60% stenosis in the Proximal Circumflex. * Right Coronary Artery There is a 32 mm long, 100% stenosis in the ostial-mid RCA. The lesion has a PATRICK flow of 0 and has thrombus present. An intervention was performed on the Proximal RCA with a final stenosis of 0%. There were no lesion complications. The final PATRICK flow was 3. There is a 60% stenosis in the Distal RCA. Fluoro capture did not work to capture first RCA film showing occluded right* Interventional Device(s) Vessel Segment Type Name Diameter (mm) Length (mm) Proximal RCA Balloon NC Emerge 3.75 12 Proximal RCA Drug Eluting Stent Synergy 3.5 8 Proximal RCA Balloon NC Emerge 3.5 20 Proximal RCA Drug Eluting Stent Synergy 3.5 24 Proximal RCA Balloon Emerge Monorail 2.5 15 Updated by Jacy Hsieh RN on 09/27/2016 1:52:38 PM Chavo Figueroa MD, FAC electronically signed on 09/28/2016 2:08:14 PM with status of Final
--- NOTE | 2016-09-28 15:56 | Consult Note ---
Date of Encounter: 09/28/16 Time of Encounter: 15:00 Assessment & Recommendation (1) Tearfulness Current visit: Yes Status: Acute Assessment & Recommendation: There are no psychiatric condition or issues that need to be addressed at this time. From psychiatric point of view patient is stable. History of Present Illness Patient: new to practice Requesting Physician: Chavo Figueroa MD Reason for consult: tearfullness History of present illness: Ms. Amaya is a 40 year old female diagnosed with ST elevation myocardial infarction and treated in ICU. Psychiatric consultation was requested to evaluate tearfulness or emotionality. Patient denies any history of psychiatric treatment and denies any symptoms of depression or anxiety. She is concerned about her heart condition and she states that some medication administered in the hospital spatially anesthetics caused her to feel more emotional and this happened in the past. was in the room and he will confirm this statement . I suggested that she can review with the attending physician medication administered and identify medication that caused this reaction and to be added to her allergy list. CC: Chavo Figueroa MD Past Med Surg Social Fam HX - Past Medical History Medical history: hypertension - Social History Smoking Status: Current some day smoker Smokeless Tobacco Status: No Alcohol use: none Drug use: none Medications & Allergies No Known Home Drugs 09/27/16 [History] Allergies No Known Allergies Allergy (Verified 09/27/16 12:21) Mental Status Exam Patient orientation: Yes Person, Yes Time, Yes Place Level of alertness: Alert Patient appearance: Appropriate, Well Groomed Behavior: calm, cooperative, anxious Psychomotor activity: Normal Eye contact: Maintains Eye Contact Mood description: Euthymic/stable Affect description: congruent with mood, full range Speech pattern: Normal rate, Normal rhythm, Normal tone Speech volume: Normal Thought process: Linear, Goal Oriented Thought content: No Suicidal ideation, No Homicidal ideation, No Overt delusions Perceptual disturbances: No Auditory hallucinations, No Visual hallucinations Attention span: Capable of Focused Attention Memory description: Grossly Intact Patient reliability: Reliable Historian Intelligence estimate: Average Judgment: Limited Insight: Partial Results - Vital Signs Vital signs: Temp Pulse Resp BP Pulse Ox 97.5 F L 70 20 122/84 99 09/28/16 11:56 09/28/16 11:00 09/28/16 11:00 09/28/16 11:00 09/28/16 11:00 - Labs Labs: Laboratory Last Values WBC 18.3 K/mcL (4.3-11.1) H 09/28/16 03:25 RBC 4.62 M/mcL (3.82-4.97) 09/28/16 03:25 Hgb 12.6 g/dL (11.5-15.4) 09/28/16 03:25 Hct 38.3 % (35.3-44.9) 09/28/16 03:25 MCV 82.9 fL (83.0-100.0) L 09/28/16 03:25 MCH 27.3 pg (28.0-33.3) L 09/28/16 03:25 MCHC 32.9 g/dL (31.6-35.5) 09/28/16 03:25 RDW 14.8 % (11.5-14.5) H 09/28/16 03:25 Plt Count 225 K/mcL (140-400) 09/28/16 03:25 MPV 11.6 fL (9.4-12.4) 09/28/16 03:25 Immature Gran % 0.6 % (0-4) 09/28/16 03:25 Seg Neutrophils % 75.3 % 09/28/16 03:25 Lymphocytes % 18.3 % 09/28/16 03:25 Monocytes % 5.1 % 09/28/16 03:25 Eosinophils % 0.4 % 09/28/16 03:25 Basophils % 0.3 % 09/28/16 03:25 Neutrophils # 13.8 K/mcL (1.6-8.9) H 09/28/16 03:25 Lymphocytes # 3.4 K/mcL (0.6-4.6) 09/28/16 03:25 Monocytes # 0.9 K/mcL (0.0-1.3) 09/28/16 03:25 Eosinophils # 0.1 K/mcL (0.0-0.6) 09/28/16 03:25 Basophils # 0.1 K/mcL (0.0-0.2) 09/28/16 03:25 PT 12.6 Seconds (9.4-12.1) H 09/27/16 12:17 INR 1.2 09/27/16 12:17 APTT 28.2 Seconds (26.0-36.0) 09/27/16 12:17 Sodium 138 mEq/L (136-145) 09/28/16 03:25 Potassium 4.5 mEq/L (3.5-4.5) D 09/28/16 03:25 Chloride 106 mEq/L (98-109) 09/28/16 03:25 Carbon Dioxide 23 mEq/L (19-29) 09/28/16 03:25 BUN 3 mg/dL (7-20) L 09/28/16 03:25 Creatinine 0.76 mg/dL (0.57-1.11) 09/28/16 03:25 Est GFR ( Amer) > 60 (> 60) 09/28/16 03:25 Est GFR (Non-Af Amer) > 60 (> 60) 09/28/16 03:25 BUN/Creatinine Ratio 4 (6-26) L 09/28/16 03:25 Glucose 96 mg/dL (70-99) 09/28/16 03:25 POC Glucose 120 (58-89) H 09/27/16 13:41 Calculated Osmolality 282 (280-300) 09/28/16 03:25 Calcium 9.0 mg/dL (8.6-10.8) 09/28/16 03:25 Total Bilirubin 0.6 mg/dL (0.2-1.2) 09/27/16 12:17 AST 10 Units/L (5-34) 09/27/16 12:17 ALT 8 Units/L (0-55) 09/27/16 12:17 Alkaline Phosphatase 114 Units/L (38-126) 09/27/16 12:17 Troponin I 0.07 ng/mL (0-0.03) H* 09/27/16 12:17 Serum Total Protein 7.5 g/dL (6.0-8.3) 09/27/16 12:17 Albumin 3.5 g/dL (3.5-5.0) 09/27/16 12:17 Globulin 4.0 g/dL (2.4-3.5) H 09/27/16 12:17 Albumin/Globulin Ratio 0.9 (1.1-2.2) L 09/27/16 12:17 Consult Discharge Plan - Plan Referrals: Bre Sheppard CNP [Advanced Practice Nurse] - 10/03/16 9:00 am (please show up 30 minutes early to fill out new patient paper work. Take with you a picture ID , INS CARDS, ALL MEDICATIONS IN THE BOTTLES. IF YOU HAVE TO CANCEL PLEASE CALL WITHIN 24 HOURS OF YOUR APPOINTMENT TO DO SO @[phone]. YOU WILL NEED $ 125.00 UP FRONT IF YOU HAVE NO INSURANCE) Donny Redman, DO [Partnered Physician] - (office will call patient at home with appointment)
[2016-09-29] MEDS: *HR* Heparin 5,000 UNIT/ML VIAL SQ SCH (06:16)
[2016-09-29 07:27] VITALS: BP 122/84
[2016-09-29] MEDS: *HR* Ticagrelor 90 MG TABLET PO SCH (07:40)
--- NOTE | 2016-09-29 08:40 | Discharge Summary ---
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 Had severe 1 vessel CAD, EF 55%. Successful PTCA/EZRA in proximal RCA. Moderate 2 vessel CAD. DAPT (ASA and Brilinta) x 1 year interrupted. Pt verbalizes understanding. Continue BB and statin. Pt is not insured--switch crestor to lipitor for cost. Will given free 30 day brilinta card, but will need switched to Plavix as outpt for cost. Pt denies any chest pain or dyspnea. She is tearful and emotional. Psych was consulted, felt there were no acute issues. Reviewed cardiac meds--none should be causing the tearfulness. states she is tearful anytime she sees a provider. Labs and vitals stable. Troponin 0.07. Echo EF 55%, normal wall motion, mild diastolic dysfunction. Right radial access site healing well. No bleeding, hematoma or ecchymosis noted. Discharging home in stable condition. Will need follow-up in 5-7 days. Will coordinate. Qualifiers: Involved coronary artery: unspecified coronary artery Qualified Code(s): I21.3 - ST elevation (STEMI) myocardial infarction of unspecified site (2) Tobacco abuse Priority: Secondary Status: Chronic Comments: Smoking cessation counseling given. Pt denies need for nicotine patches. They were offered. (3) Tearfulness Priority: Secondary Status: Acute Comments: New onset of crying, feeling emotional. It is in setting of significant life event--STEMI. Pt is not suicidal. Has never been on antidepressants. Consulted psych to evaluate and they note there are no acute issues. - Discharge Medications Prescriptions: Aspirin 81 mg PO DAILY #30 tab.chew Atorvastatin [Lipitor] 80 mg PO HS #30 tablet Metoprolol XL (24 HR) Succ [Toprol Xl] 25 mg PO DAILY #30 tab.er.24h Nitroglycerin 0.4 mg SL Q5-6MIN PRN #30 tab.subl PRN Reason: Chest Pain Ticagrelor [Brilinta] 90 mg PO BID #60 tablet Home Medications: Aspirin 81 mg PO DAILY #30 tab.chew 09/29/16 [Rx] Atorvastatin [Lipitor] 80 mg PO HS #30 tablet 09/29/16 [Rx] Metoprolol XL (24 HR) Succ [Toprol Xl] 25 mg PO DAILY #30 tab.er.24h 09/29/16 [ Rx] Nitroglycerin 0.4 mg SL Q5-6MIN PRN #30 tab.subl 09/29/16 [Rx] Ticagrelor [Brilinta] 90 mg PO BID #60 tablet 09/29/16 [Rx] Allergies/Adverse Reactions: Allergies No Known Allergies Allergy (Verified 09/27/16 12:21) Date of admission: 09/27/16 13:21 Primary care physician: PCP NO Consults: 09/27/16 13:26 Consult to Aircraft Magneto Mechanic [CONS] Routine Reason for SW Consult: no insurance 09/27/16 14:32 Consult to Aircraft Magneto Mechanic [CONS] Routine Reason for SW Consult: financial concerns 09/28/16 11:06 Consult to Psychiatry [CONS] Routine Consulting Provider: Psychiatry Jenny Reason for Consult: tearfulness, depressed Call Completed: Yes Discharging clinician: Justen Rivero Anticipated date of discharge: 09/29/16 - Patient Status Disposition: Home, Self-Care Condition: Fair Functional capacity at discharge: independent ambulation Overall status at discharge: patient is progressing back to baseline - Discharge Instructions Follow Up With: Bre Sheppard CNP [Advanced Practice Nurse] - 10/03/16 9:00 am (please show up 30 minutes early to fill out new patient paper work. Take with you a picture ID , INS CARDS, ALL MEDICATIONS IN THE BOTTLES. IF YOU HAVE TO CANCEL PLEASE CALL WITHIN 24 HOURS OF YOUR APPOINTMENT TO DO SO @[phone]. YOU WILL NEED $ 125.00 UP FRONT IF YOU HAVE NO INSURANCE) Donny Redman DO [Partnered Physician] - (office will call patient at home with appointment) Additional Instructions: RISK FACTORS: STOP SMOKING: If you smoke, STOP. Smoking or tobacco use significantly increases your risk of heart disease because nicotine causes the arteries to narrow or constrict. It also causes fats to stick to the artery. Your chances of having a heart attack are greatly increased if you continue to smoke. For more information, call the education line for smoking cessation 9-633-CVISVGC EAT A LOW FAT/CHOLESTEROL/SODIUM DIET: This diet may help reduce your chances of having a heart attack. LIFTING: With affected extremity: Avoid bending, pushing off and lifting more than 2 pounds for 24 hours The following 48 hours, avoid lifting anything more than 5 pounds Avoid strenuous activity or repetitive motions ACTIVITY: You may walk or climb stairs as tolerated You can resume sexual activity as tolerated In general, you are encouraged to engage in a minimum of 30 minutes or more of moderate intensity physical activity, such as brisk walking, daily or at least 3 -4 times weekly BATHING Do not submerge the site into water (bath tub, hot tub, swimming pool, dishes) for 1 week. This can be a source for infection into the blood stream. You may shower after 24 hours SITE CARE: After 24 hours, you may remove the dressing and leave the site open to air. Keep the site clean and dry. Clean gently and pat dry. You can expect bruising and tenderness that gradually resolve within a week or two. Return to work as instructed per your physician Resume driving as instructed per physician Keep all scheduled follow up appointments Resume medications as instructed IMPORTANT: If prescribed a Platelet Aggregation Inhibitor such as, Plavix, Brilinta or Effient: Duration of therapy is minimum one year These medications are often used in combination with Aspirin in prevention of future heart attacks Never discontinue unless consult with your Metal Fabrication Supervisor STROKE (CVA) Risk factors for a stroke are: Age, cigarette smoking, diabetes, excessive alcohol consumption, family history, high blood pressure, overweight, physical inactivity, prior stroke, heart attack, diagnosis of carotid artery stenosis or other artery disease. Warning signs: Sudden numbness or weakness of the face, arm or leg; especially on one side of the body, sudden confusion, trouble speaking or understanding, sudden trouble seeing in one or both eyes, sudden trouble walking, dizziness, loss of balance or coordination, sudden severe headache with no cause. Call 911 or go to the Emergency Room. CONGESTIVE HEART FAILURE: If you have been diagnosed with Congestive Heart Failure (CHF) and your symptoms return, make an appointment with your physician Weigh yourself daily. Notify your physician if you have a weight gain of two or more pounds in one day or five or more pounds in one week. If you experience any difficulty breathing, please call 911 BLEEDING: Although the risk of bleeding is minimal, it can happen. If you have any bleeding from the site, apply firm pressure above the puncture site for 10-15 minutes. If the bleeding does not stop, continue manual pressure and call 911 Contact [facility] ( ) if: You develop a fever greater than 101 degrees Fahrenheit Your site becomes reddened or has any drainage You have an increase in pain or burning at the site or if a large knot forms at the site. If you experience chest pain, shortness of breath, dizziness, or extreme tiredness, stop the activity and rest. Please notify [facility] office if you experience any of these symptoms and they are not relieved by rest please call 911! - Diet and Activity Activity: increase activity as tolerated Diet: low fat, low cholesterol - Hospital Course Hospital course: Ms. 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 Had severe 1 vessel CAD, EF 55%. Successful PTCA/EZRA in proximal RCA. Moderate 2 vessel CAD. DAPT (ASA and Brilinta) x 1 year interrupted. Pt verbalizes understanding. Continue BB and statin. Pt is not insured--switch crestor to lipitor for cost. Will given free 30 day brilinta card, but will need switched to Plavix as outpt for cost. Pt denies any chest pain or dyspnea. She is tearful and emotional. Psych was consulted, felt there were no acute issues. Reviewed cardiac meds--none should be causing the tearfulness. states she is tearful anytime she sees a provider. Labs and vitals stable. Troponin 0.07. Echo EF 55%, normal wall motion, mild diastolic dysfunction. Right radial access site healing well. No bleeding, hematoma or ecchymosis noted. Discharging home in stable condition. Will need follow-up in 5-7 days. Will coordinate. She smokes, counselling given. Offered nicotine patches, pt declines. Time spent discussing smoking cessation with patient: 3 to 10 minutes - Time Spent with Patient Total time spent providing and/or coordinating discharge services: 30 minutes Physical Examination Vital Signs, Last 4 Hours Temp Pulse Resp BP Pulse Ox 09/29/16 07:40 71 09/29/16 07:24 98.0 F 71 16 122/84 97 Vital Signs Temp Pulse Resp BP Pulse Ox 09/29/16 07:40 71 09/29/16 07:24 98.0 F 71 16 122/84 97 09/29/16 04:27 98.4 F 80 16 111/66 96 09/29/16 00:10 98.6 F 83 18 121/82 95 09/28/16 20:00 98.2 F 71 18 142/87 97 09/28/16 17:25 79 99 09/28/16 15:54 97.9 F 62 17 138/92 99 09/28/16 11:56 97.5 F L 09/28/16 11:00 70 20 122/84 99 09/28/16 09:57 71 Intake and Output 09/28/16 09/29/16 09/29/16 23:59 07:59 15:59 Intake Total 400 / 400 Output Total 400 / 400 Balance 0 / 0 Intake: Oral 400 / 400 Output: Urine 400 / 400 Other: Weight 80.9 kg Patient Weight 09/29/16 23:59 Weight 80.9 kg General: Conversant, No Apparent Distress HEENT: Atraumatic, Normocephaly, Mucus Membranes Moist Neck: No JVD, Normal carotid pulses Cardiac: Reg Rate and Rhythm, Normal S1 and S2, No Murmur Lungs: Normal Breath Sounds, No Wheeze, Rales, Rhonchi Neuro: Alert and responsive, No focal deficits noted Abdomen: Soft, Non-Tender Skin: No rashes noted on visualized skin Musculoskeletal: No Chest Wall Tenderness Extremities: No Clubbing, No Cyanosis, No Edema, Normal Pulses
[2016-09-29] MEDS ORDERED: Metoprolol XL (24 HR) Succ 25 MG TAB.ER.24H PO SCH (09:00)
[2016-09-29] MEDS ORDERED: Aspirin 81 MG TAB.CHEW PO SCH (09:00)
== END 2016-09-29 11:40 | disposition home or self-care (01) | DRG 247 ==
LOC: ICNU 12:01 → EMEROO 12:01 → ICNU 12:28 → 2NNU 09-28 17:07
PROVIDERS: ADMIT Emergency Medicine; ATTEND Emergency Medicine